=== PATIENT | male | born 1990 | race Caucasian/White ===

== ENCOUNTER 2021-12-19 19:54 | Emergency (ER) | payer OTHER, SELFPAY ==
[2021-12-19 19:55] VITALS: BP 128/92; PULSE 93; RESP 15; O2SAT 98
[2021-12-19 19:56] VITALS: BP 128/92; PULSE 93; RESP 15; TEMP 36.4; O2SAT 100; BMI 26.9
--- NOTE | 2021-12-19 20:13 | EX.ED.UPPERE ---
HPI History of Present Illness Chief Complaint: Upper Extremity Injury Detail of Chief Complaint: Right hand injury at work. Worker's Comp. Informant: patient Occured/Mechanism Mechanism/Context: Yes injury and Yes blunt trauma Onset/Context/Timing Onset: Today Context: Sudden Onset Timing: Continuous Quality of Pain: Sharp Current Severity: Mild Maximum Severity: Mild Narrative Narrative: 30-year-old male [id number] and no past medical history. Was at work moving a forefoot or so long piece of pipe that came loose from the piece of equipment that he was lifting it with as he was guided into place with his hand and fell on his right hand causing lacerations to his right long and ring fingers. This occurred less than an hour ago. He is unsure of his tetanus status believes it needs to be updated. Tetanus Immunization: >10 years Prior similar symptoms: No Recent Illness/Hospitalization: No PFSH PFSH Medical History no medical history no medical history Home Medications cephalexin 500 mg PO Q8H 10 Days #30 cap 12/19/21 [Rx Last Taken Unknown] Allergy/AdvReac Type Severity Reaction Status Date / Time No Known Allergies Allergy Verified 12/19/21 19:55 Surgical History History of elbow surgery Social History Smoking Status: Never smoker ROS ROS ED ROS Narrative Denies recent illness. Review of Systems ROS Unobtainable: Denies due to encephalopathy Constitutional Constitutional ED: Denies fever(s) Eyes Eyes: Denies change in vision ENT ENT ED: Denies ear pain Cardiovascular Cardiovascular: Denies chest pain Respiratory/Chest Respiratory/Chest: Denies cough or dyspnea Gastrointestinal Gastrointestinal: Denies abdominal pain, nausea or vomiting Genitourinary Genitourinary ED: Denies dysuria Musculoskeletal Musculoskeletal: Denies myalgias Integumentary Denies rash Neurologic Neurologic: Denies headache(s) Psychiatric Psychiatric: Denies depression Endocrine Endocrinology: Denies polyuria Hematologic/Lymphatic Hematologic/Lymphatic: Denies easy bruising Allergic/Immunologic Allergic/Immunologic ED: Denies urticaria EXAM Physical Exam Narrative Exam Narrative: 10-year-old male no acute distress vital signs stable afebrile. HEENT, neck exam normal. Lungs are clear. Heart regular rhythm. Rate about 90. Abdomen soft nontender. Chest nontender. Back nontender. Both lower extremities left upper extremity unremarkable. Right hand currently is in a dressing which I will remove and evaluate after his x-ray. Const Vital Signs: 12/19/21 19:55 12/19/21 19:56 Temperature 97.6 F L Temperature Source Temporal Pulse Rate 93 93 Respiratory Rate 15 15 Blood Pressure 128/92 H 128/92 H Blood Pressure Mean 104 104 Pulse Ox 98 100 Oxygen Delivery Method Room Air Room Air Positive well nourished and well developed; Negative for obese, cachectic, contractures or unkempt General Appearance ED: well developed and NAD; Negative for unkempt, cachectic, contractures, cyanotic or diaphoretic Nutritional Appearance: Negative for cachectic or obese HEENT Reports moist mucous membranes normocephalic and atraumatic; Negative for trauma or tenderness Eyes PERRL and EOMs intact bilaterally Neck full ROM and supple General: Negative for tenderness Chest Wall inspection of chest normal and palpation of chest normal Resp normal respiratory effort and clear to auscultation bilaterally Effort and Inspection: Negative for pain with movement Auscultation: Negative for rales, rhonchi or wheezes Cardio regular rate, regular rhythm, S1 normal heart sound, S2 normal heart sound and no murmurs GI non-tender, non-distended and no masses Auscultation: normoactive bowel sounds Palpation: soft; Negative for tender, guarding or rebound tenderness present Back/Spine no CVA tenderness General Back: Negative for CVA tenderness Cervical Spine: Negative for cervical spine tenderness Thoracic Spine / Upper Back: Negative for thoracic spinal tenderness Lumbar Spine / Lower Back: Negative for lumbar spinal tenderness, straight leg raise negative bilaterally or straight leg raise positive right Extremity Extremity Narrative: Right hand Neuro oriented x3 and moves all extremities Sensorium / Orientation: alert, oriented to person, oriented to place and oriented to time; Negative for orientation impaired, lethargic or stuporous Psych mental status grossly normal Appearance: Negative for unkempt Mood & Affect: Negative for depressed or tearful Skin Lesions: no lesions Rashes: no rashes Trauma: laceration; Negative for no lacerations or abrasions or abrasion MDM MDM MDM Narrative Medical decision making narrative: 30-year-old male [id number] with a right hand injury at work. This is Worker's Comp. Tetanus updated. X-ray being obtained Radiography Diagnostic Testing: Right hand x-ray shows lacerations of the soft tissue of the ring and long fingers. No fracture. No dislocation. 4 views. Interpreted both by myself and the radiologist. Procedures Lacerations Right long finger laceration: Length: 0.98 in Depth: Tendon Shape: Linear Prep: Betadine Laceration repair: Digital block, Irrigated, Nerve block and Skin sutures Number of Sutures/Enochs: 5 Suture Information: Ethilon and 5-0 Comment: Right long finger laceration at the DIP joint. Flexor side. He is unable to do flexion of the distal phalanx of the right long finger concerning for a flexor tendon laceration. Digital block performed. Finger was cleaned prior to that with iodine and then the wound was cleaned with iodine and irrigated. Explored does appear to have a flexor tendon laceration. Skin was closed using five, 5-0 Ethilon simple interrupted sutures. Proper hemostasis wound closure is obtained. Right ring finger laceration: Length: 0.98 in Depth: Sub Q Shape: Linear Prep: Betadine Laceration repair: Digital block, Irrigated, Lidocaine and Nerve block Number of Sutures/Enochs: 5 Suture Information: Ethilon and 5-0 Comment: Right ring finger laceration at the DIP joint. He did have full flexion-extension of the right ring finger. Digital block performed. Cleaned with iodine and the wound was copiously irrigated with saline. He does appear to have a partial laceration of the flexor tendon but still has range of motion, touch sensation and cap refill. Skin was closed using 5, 5-0 Ethilon simple interrupted sutures. Proper hemostasis and wound closure is obtained. Discharge Plan Triage Chief Complaint: Upper Extremity Injury ED Provider: Indio King Dx/Rx/DC Orders Clinical Impression: Encounter related to worker's compensation claim, Laceration of finger, Flexor tendon laceration of finger with open wound Instructions: ED Laceration, Hand: All Closures, ED Tendon Laceration Prescriptions: New cephalexin 500 mg capsule 500 mg PO Q8H 10 Days Qty: 30 RF: 0 Primary Care Provider: Care Physician,No Primary Referrals: Clive Montelongo DO [STAFF PHYSICIAN] - As soon as possible Care Physician,No Primary [Primary Care Provider] - Activity Restrictions/Additional Instructions: Ice and elevate your hand to decrease pain and swelling. Motrin and Tylenol for pain. Call and follow-up with the orthopedic physician Dr. Clive Montelongo. He is with [facility]. Call their office tomorrow and get into be seen as soon as possible. You have a complete laceration of the flexor tendon of your long finger and I believe a partial laceration of the ring finger. He will need to 6 to one of the long finger. Keflex antibiotic 3 times a day till you are seen in follow-up with the office. He will probably have to complete the entire prescription. Keep the fingers dry, clean and covered. Leave our dressing on for the next 3 to 4 days if it gets dirty or wet change it before that. Disposition Disposition: Home, Self Care
--- NOTE | 2021-12-19 20:31 | RAD_ITS ---
STUDY: XR Hand Min 3 Views REASON FOR EXAM: Male, 30 years old. 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 laceration to distal third and fourth digit. Finger pain TECHNIQUE: XR Hand Min 3 Views RIGHT COMPARISON: None. FINDINGS: Normal radiocarpal articulation. Normal distal radioulnar joint. Normal visualized carpal bones. Normal carpal articulations Normal carpometacarpal articulation of the thumb. Normal second through fifth carpometacarpal joints. Normal metacarpi. Normal metacarpophalangeal joint of the thumb. Normal interphalangeal joint of the thumb. Normal proximal and distal phalanges of the thumb. Normal metacarpophalangeal joints of the second through fifth fingers. Normal proximal and distal interphalangeal joints of the second through fifth fingers. Normal phalanges of the second through fifth fingers. There is soft tissue laceration along the volar aspect of the 3rd and 4th digit. There is no fracture. RAD/Hand Min 3 Views IMPRESSION: There is soft tissue laceration along the volar aspect of the 3rd and 4th digit. There is no fracture. Electronically Signed: Manjeet Quinn MD at 20:47 EDT Reading Location ID and State: [facility] / [place] , Service support ,
[2021-12-19] MEDS: Diphth,Pertuss(Acell),Tet Vac 0.5 ML Vial IM (20:39)
[2021-12-19] MEDS: Lidocaine 1% (20 ml mdv) 20 ML Vial 10 ML INFILT (20:39)
[2021-12-19 21:01] VITALS: BP 133/88; PULSE 88; RESP 14; O2SAT 100
[2021-12-19 22:32] VITALS: BP 138/99; PULSE 96; RESP 16; O2SAT 97
[2021-12-19] MEDS: Cephalexin 250 MG Capsule 500 MG PO (22:50)
--- NOTE | 2021-12-19 22:56 | ED.RN ---
WOUND CLEANED, SPLINTED AND DRESSED PER ORDER. PATIENT INSTRUCTED TO FOLLOW UP AT [facility] FOR POST ACCIDENT DRUG SCREEN.
== END 2021-12-19 22:57 | disposition home or self-care (01) ==
PROVIDERS: Emergency Provider Emergency Medicine; Visit Provider Emergency Medicine
DX: S61.214A Laceration without foreign body of right ring finger without damage to nail, initial encounter (principal); S61.212A Laceration without foreign body of right middle finger without damage to nail, initial encounter; X58.XXXA Exposure to other specified factors, initial encounter; Z23 Encounter for immunization
CPT/HCPCS: 12001; 73130; 90471; 90715; 99285; A4216

== ENCOUNTER 2022-08-07 01:36 | Emergency (ER) | payer OTHER, SELFPAY ==
[2022-08-07 01:37] VITALS: BP 159/97; PULSE 89; RESP 16; TEMP 36.6; O2SAT 98; BMI 25.9
--- NOTE | 2022-08-07 01:58 | EDS_ITS ---
HPI History of Present Illness Chief Complaint: Laceration Informant: patient Narrative Narrative: Patient is a 31-year-old male presenting with laceration to his right chin. 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 He denies any loss of conscious. Denies any other injuries. He sustained a laceration to the area and came in for further evaluation/suture repair. Not any blood thinners. No other complaints at this time. Tetanus Immunization: <5 years PFSH PFSH Home Medications cephalexin 500 mg capsule 500 mg PO Q8H 10 days #30 caps 12/19/21 [Rx Last Taken Unknown] Allergy/AdvReac Type Severity Reaction Status Date / Time No Known Allergies Allergy Verified 12/19/21 19:55 Surgical History History of elbow surgery Social History Smoking Status: Never smoker ROS ROS ED Eyes Eyes: Denies blurry vision or change in vision ENT ENT ED: Denies ear pain, rhinorrhea or sore throat Gastrointestinal Gastrointestinal: Denies nausea or vomiting Integumentary Reports Abrasions Neurologic Neurologic: Denies headache(s), paresthesias or weakness Hematologic/Lymphatic Hematologic/Lymphatic: Denies easy bleeding or easy bruising EXAM Physical Exam Const Vital Signs: 08/07/22 01:37 Temperature 97.8 F Temperature Source Temporal Pulse Rate 89 Respiratory Rate 16 Blood Pressure 159/97 H Blood Pressure Mean 117 Pulse Ox 98 Oxygen Delivery Method Room Air Positive well nourished and well developed General Appearance ED: well developed and NAD HEENT Reports TM's clear HEENT Narrative: No malocclusion. No trismus. 2 mm superficial abrasion to the buccal surface of the lower lip at the midline. There is a 2.5 cm linear laceration running underneath the right lower lip with no involvement of the vermilion border. It does not appear to be full-thickness/through and through. The lateral part is partial-thickness/superficial and then it gets deeper the more medial the laceration goes. Nose: Negative for septum abnormal Tympanic Membrane ED: Yes TM's clear Eyes PERRL Neck full ROM General: Negative for tenderness Chest Wall inspection of chest normal Resp normal respiratory effort and clear to auscultation bilaterally Cardio regular rhythm and no murmurs Extremity normal to inspection and full ROM General Extremety ED: Negative for deformity General Extremity: Negative for deformity Neuro oriented x3, moves all extremities and no focal motor deficits Skin Skin Narrative: Right-sided chin laceration below the lip. See above. PROC Procedures Lacerations face: Length: 0.79 in Depth: Skin Shape: Linear Prep: Chlorhexadine Laceration repair: Lidocaine with epi, Local (LET) and Skin sutures Irrigated (ml): 100 Number of Sutures/Paulo: 3 Suture Information: Vicryl, Simple and 5-0 MDM MDM MDM Narrative Medical decision making narrative: Patient evaluated for work-related injury to his face. Laceration repair was performed. See procedure note. Workmen's Comp. paperwork is filed. Patient discharged home with wound care instructions as well as return instructions. Encouraged to follow[facility]up with [facility]. Counseled on signs and symptoms of infection. Wound overall is clear I do not think requires empiric antibiotics. Discharge Plan Triage Chief Complaint: Laceration ED Provider: Alyssa Ortega Dx/Rx/DC Orders Clinical Impression: Laceration of face Instructions: ED FACIAL LACERATION Suture Tape Prescriptions: No Action cephalexin 500 mg capsule 500 mg PO Q8H 10 Days Qty: 30 0RF Primary Care Provider: Care Physician,No Primary Referrals: [facility] [Group of Physicians] - 3-5 Days Care Physician,No Primary [Primary Care Provider] - Activity Restrictions/Additional Instructions: Alternate ibuprofen and Tylenol as needed for discomfort. Return with signs of infection. Keep the wound clean. You may apply vxaq-aec-yldijfx antibiotic ointment such as bacitracin ointment to it. The sutures should dissolve on their own however if have not come out in 5 days please have them removed. This can be done through [facility], [facility] or by return to the emergency room. Disposition Disposition: Home, Self Care
[2022-08-07] MEDS: Lidocaine 1% /Epi 1:100 (20ml) 20 ML Vial INFILT (02:06)
[2022-08-07] MEDS: Lidocaine/Epi/Tetracaine 50 ML 1 APPLIC TOPICAL (02:06)
== END 2022-08-07 03:34 | disposition home or self-care (01) ==
PROVIDERS: Emergency Provider Emergency Medicine; Visit Provider Emergency Medicine
DX: S01.81XA Laceration without foreign body of other part of head, initial encounter (principal); X58.XXXA Exposure to other specified factors, initial encounter
CPT/HCPCS: 12011; 99283

== ENCOUNTER 2024-11-09 21:20 | Emergency (ER) | payer OTHER, SELFPAY ==
[2024-11-09 21:20] VITALS: BP 140/90; PULSE 97; RESP 17; TEMP 36.8; O2SAT 99; BMI 25.8
--- NOTE | 2024-11-09 21:33 | RAD_ITS ---
PROCEDURE: HAND MIN 3 VIEWS 11/09/2024 REASON FOR EXAM: INJURY/PAIN TECHNIQUE: 3 views of the right hand COMPARISON: 12/19/2021 FINDINGS: Bones: Amputation of the 5th digit through the distal interphalangeal joint. Metallic screw within the base of the 3rd distal phalanx. Joints: Normal alignment. Soft tissues: Soft tissues are unremarkable. Other: RAD/Hand Min 3 Views IMPRESSION: No acute fracture or dislocation. Interval partial amputation of the 5th digit. Interval placement of screw within the base of the 3rd distal phalanx. Reading Location: [id number]
--- NOTE | 2024-11-09 21:34 | EX.ED.GENINJ ---
HPI History of Present Illness Chief Complaint: Laceration Detail of Chief Complaint: Injury to right ring and little finger Informant: patient Onset/Context/Timing Onset: Hours Mechanism/Context: Blunt Injury Location of pain/injuries: Right hand Quality of Pain: Dull and Aching Location: Right ring and little finger Current Severity: Mild Maximum Severity: Moderate Worsened by: Initial injury Relieved by: Nothing Associated Symptoms Associated Symptoms: Positive for Loss of function; Negative for Parasthesias, Weakness, Inability to ambulate or Loss of consciousness Narrative Narrative: Patient is a 33-year-old [id number] male. He presents with injury to his right ring and little finger. He was at work. He got his right hand entangled in cable. 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 He states it tore off his fingers. Tetanus is up-to-date. He has no antibiotic allergies. Tetanus Immunization: <5 years Prior similar symptoms: No Recent Illness/Hospitalization: No PFSH PFSH Home Medications ?Medication ?Instructions ?Recorded ?Last Taken ?Type cephalexin 500 mg capsule 500 mg PO Q8H 10 days #30 caps 12/19/21 Unknown Rx cephalexin 500 mg capsule 500 mg PO Q8H #14 CAPSULES 11/09/24 Unknown Rx hydrocodone-acetaminophen 5-325mg 1 tab PO Q6H PRN PRN Pain 3 days 11/09/24 Unknown Rx 5mg-325mg #10 TABLETS Allergy/AdvReac Type Severity Reaction Status Date / Time No Known Allergies Allergy Verified 11/09/24 21:23 Surgical History History of elbow surgery Social History Smoking Status: Never smoker ROS [facility] ED Neurologic Neurologic: Reports paresthesias RUE; Denies headache(s) Hematologic/Lymphatic Hematologic/Lymphatic: Denies easy bleeding or easy bruising EXAM Physical Exam Const Vital Signs: 11/09/24 21:20 Temperature 98.2 F Temperature Source Temporal Pulse Rate 97 Respiratory Rate 17 Blood Pressure 140/90 H Blood Pressure Mean 106 Pulse Ox 99 Oxygen Delivery Method Room Air Positive well nourished and well developed General Appearance ED: well developed; Negative for NAD HEENT HEENT Narrative: Head is normocephalic. atraumatic Eyes PERRL and EOMs intact bilaterally Neck full ROM Resp normal respiratory effort Cardio regular rhythm Rate: regular rate Extremity Negative for normal to inspection or full ROM Extremity Narrative: Patient avulsed the volar fat pad of his right ring finger. The flexor digitorum superficialis and flexor digitorum profundus are functionally intact. The extensor commonness tendon is intact. Examination of the little finger reveals amputation distal to the DIP joint. The extensor mechanism intact. The flexor digitorum superficialis is functional. Patient is in pain which limits his exam. Will reassess after he has been anesthetized. There is no subungual hematoma of the ring finger. There is no injury to the index or long finger. Median, radial and ulnar function intact. Neuro oriented x3, CN's II-XII intact bilaterally and no sensory deficits noted Motor Exam: strength 5/5 throughout Psych Mood & Affect: anxious Skin Skin Narrative: Injury to the volar surface of the right ring finger and amputation of the distal right little finger PROC Procedures Other Procedures Procedure(s): Closure of wound right little finger. Patient had a median and ulnar nerve block placed. He is still complaining of pain tip of the right little finger when nurse attempted to clean. Digital block was placed. Once proper anesthesia was achieved his hands were cleaned. The wounds were irrigated 500 cc of sterile fluid. With respect to the right ring finger there is nothing to be sewn. There is loss of tissue down to the volar fat pad. There is no exposed bone. The amputated portion was cleansed. It was irrigated. Using 5-0 chromic send there was no Ethilon available wound was closed. There was 2 bleeders that were ligated. There is no exposed bone. Will have nurse apply sterile dressing. He was discharged with prescription for cephalexin. MDM MDM MDM Narrative Medical decision making narrative: X-rays obtained to determine there is a injury to the bone of the ring finger. Will have patient clean his hand since they are grinding and greasy. Tetanus is up-to-date. He received 1 g of Ancef. Will refer to plastic/hand Dr. Chucky Bridges. Radiography Chest X-Ray - ED: Read by ED Physician (Three-view x-ray reveals amputation just distal of the DIP joint of the right little finger. There is a fragment of the distal phalanx remaining. There is evidence of metallic foreign body right long finger consistent with prior injury. Appears to be a screw.) Diagnostic Testing: Clinical Impression(s) from Imaging Studies Hand X-Ray 11/09/24 21:33 IMPRESSION: No acute fracture or dislocation. Interval partial amputation of the 5th digit. Interval placement of screw within the base of the 3rd distal phalanx. 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 Print Language: Polish Disposition Disposition: Home, Self Care
[2024-11-09] MEDS: Cefazolin 1 GM/50 ML BAG IV (22:00)
[2024-11-09] MEDS: Lidocaine 1% (20 ml mdv) 20 ML Vial INFILT (22:01)
[2024-11-09 23:49] VITALS: BP 122/65; PULSE 70; RESP 17; TEMP 36.8; O2SAT 97
== END 2024-11-09 23:51 | disposition home or self-care (01) ==
PROVIDERS: Emergency Provider Emergency Medicine; Visit Provider Emergency Medicine
DX: S68.116A Complete traumatic metacarpophalangeal amputation of right little finger, initial encounter (principal); Y99.0 Civilian activity done for income or pay; X58.XXXA Exposure to other specified factors, initial encounter
CPT/HCPCS: 12001; 73130; 96365; 96366; 99284; A4216